=== PATIENT | male | born 1955 | race Caucasian/White ===

== ENCOUNTER 2020-11-28 16:32 | Inpatient (IN) ==
[2020-11-28] MEDS ORDERED: Dextrose Gel 15 GM/37.5 ML TUBE PO PRN ×2 (19:47)
[2020-11-28] MEDS ORDERED: D5% in Water 1,000 ML IVC PRN (19:47)
[2020-11-28] MEDS ORDERED: *HR* Dextrose 50 % in Water (Syg) 50 ML SYRINGE IVP PRN (19:47)
[2020-11-28] MEDS ORDERED: Insulin DETEMIR 100 UNIT/ML per UNIT SUBQ ONE (21:00)
[2020-11-28] MEDS: Lactulose Oral Soln 20 GM/30 ML UDC PO SCH (21:54)
[2020-11-29 04:50] LABS: Basophils % 0.6 %; Eosinophils # 0.1 K/mcL (0.0-0.6); Eosinophils % 2.4 %; Hematocrit 30.9 % (37.5-50.1); Hemoglobin 10.1 g/dL (12.9-16.9); Immature Granulocytes % 0.4 % (0-4); Lymphocytes # 0.7 K/mcL (0.6-4.6); Lymphocytes % 14.9 %; Mean Corpuscular HGB Conc 32.7 g/dL (31.6-35.5); Mean Corpuscular Hemoglobin 31.3 pg (28.0-33.3); Mean Corpuscular Volume 95.7 fL (83.0-100.0); Monocytes # 0.8 K/mcL (0.0-1.3); Monocytes % 16.9 %; Neutrophils # 3.2 K/mcL (1.6-8.9); Platelet Count 120 K/mcL (140-400); Red Blood Count 3.23 M/mcL (4.19-5.50); Red Cell Distribution Width 13.3 % (11.5-14.5); Segmented Neutrophils % 64.8 %
[2020-11-29 05:01] LABS: Platelet Estimate Slight Decrease (Normal)
[2020-11-29 05:03] LABS: BUN/Creatinine Ratio 24 (6-26); Blood Urea Nitrogen 31 mg/dL (8-23); Calcium 7.7 mg/dL (8.6-10.3); Carbon Dioxide 27 mEq/L (23-29); Chloride 102 mEq/L (98-107); Glucose 229 mg/dL (70-105); Osmolality,Calculated 290 (280-300); Sodium 133 mEq/L (136-145); eGFR For African Americans > 60 (> 60); eGFR For Non-African Americans 57 (> 60)
[2020-11-29] MEDS: *HR* Enoxaparin 40 MG/0.4 ML SYRINGE SQ SCH (06:07)
[2020-11-29] MEDS: Spironolactone 25 MG TABLET PO SCH (10:10)
[2020-11-29] MEDS: Furosemide 40 MG TABLET PO SCH (10:10)
[2020-11-29] MEDS: Aspirin 81 MG TAB.CHEW PO SCH (10:11)
[2020-11-29] MEDS: Insulin LISPRO 300 UNITS/3 ML VIAL SUBQ SCH ×3 (10:11→16:56)
[2020-11-29] MEDS: Venlafaxine XR (24 HR) 75 MG CAP.ER.24H PO SCH (10:11)
[2020-11-29] MEDS: Insulin DETEMIR 100 UNIT/ML X5UNITS SUBQ SCH ×2 (10:12→19:57)
[2020-11-29] MEDS: Lactulose Oral Soln 20 GM/30 ML UDC PO SCH ×2 (10:39→19:59)
[2020-11-30] MEDS: *HR* Enoxaparin 40 MG/0.4 ML SYRINGE SQ SCH (05:15)
[2020-11-30] MEDS: Insulin LISPRO 300 UNITS/3 ML VIAL SUBQ SCH ×3 (07:50→18:03)
[2020-11-30] MEDS: Aspirin 81 MG TAB.CHEW PO SCH (07:51)
[2020-11-30] MEDS: Venlafaxine XR (24 HR) 75 MG CAP.ER.24H PO SCH (07:52)
[2020-11-30] MEDS: Lactulose Oral Soln 20 GM/30 ML UDC PO SCH ×2 (07:52→20:25)
[2020-11-30] MEDS: Furosemide 40 MG TABLET PO SCH (07:52)
[2020-11-30] MEDS: Spironolactone 25 MG TABLET PO SCH (07:52)
[2020-11-30] MEDS: Insulin DETEMIR 100 UNIT/ML X5UNITS SUBQ SCH ×2 (07:54→20:25)
[2020-12-01] MEDS: *HR* Enoxaparin 40 MG/0.4 ML SYRINGE SQ SCH (05:13)
[2020-12-01] MEDS: Aspirin 81 MG TAB.CHEW PO SCH (08:05)
[2020-12-01] MEDS: Furosemide 40 MG TABLET PO SCH (08:05)
[2020-12-01] MEDS: Venlafaxine XR (24 HR) 75 MG CAP.ER.24H PO SCH (08:05)
[2020-12-01] MEDS: Spironolactone 25 MG TABLET PO SCH (08:06)
[2020-12-01] MEDS: Insulin LISPRO 300 UNITS/3 ML VIAL SUBQ SCH ×3 (08:06→17:02)
[2020-12-01] MEDS: Insulin DETEMIR 100 UNIT/ML X5UNITS SUBQ SCH ×2 (08:09→21:53)
[2020-12-01] MEDS: Lactulose Oral Soln 20 GM/30 ML UDC PO SCH ×2 (08:09→21:53)
[2020-12-02] MEDS: *HR* Enoxaparin 40 MG/0.4 ML SYRINGE SQ SCH (04:50)
[2020-12-02 06:00] LABS: Hematocrit 32.1 % (37.5-50.1); Hemoglobin 10.4 g/dL (12.9-16.9); Mean Corpuscular HGB Conc 32.4 g/dL (31.6-35.5); Mean Corpuscular Volume 95.5 fL (83.0-100.0); Mean Platelet Volume 10.6 fL (9.4-12.4); Platelet Count 126 K/mcL (140-400); Red Blood Count 3.36 M/mcL (4.19-5.50); Red Cell Distribution Width 13.5 % (11.5-14.5); White Blood Count 5.9 K/mcL (4.3-11.1)
[2020-12-02 06:28] LABS: Alanine Aminotransferase 15 Units/L (7-52); Albumin 1.9 g/dL (3.5-5.7); Albumin/Globulin Ratio 0.4 (1.1-2.2); Alkaline Phosphatase 185 Units/L (34-104); Aspartate Amino Transferase 32 Units/L (13-39); BUN/Creatinine Ratio 24 (6-26); Bilirubin,Total 1.1 mg/dL (0.3-1.0); Blood Urea Nitrogen 26 mg/dL (8-23); Calcium 7.9 mg/dL (8.6-10.3); Carbon Dioxide 28 mEq/L (23-29); Chloride 104 mEq/L (98-107); Globulin 4.6 g/dL (2.4-3.5); Glucose 70 mg/dL (70-105); Magnesium 1.8 mg/dL (1.6-2.6); Osmolality,Calculated 283 (280-300); Potassium 3.7 mEq/L (3.5-5.1); Sodium 135 mEq/L (136-145); Total Protein 6.5 g/dL (6.4-8.9); eGFR For African Americans > 60 (> 60); eGFR For Non-African Americans > 60 (> 60)
[2020-12-02] MEDS: Insulin DETEMIR 100 UNIT/ML X5UNITS SUBQ SCH ×2 (08:00→20:54)
[2020-12-02] MEDS: Insulin LISPRO 300 UNITS/3 ML VIAL SUBQ SCH ×3 (08:00→16:46)
[2020-12-02] MEDS: Aspirin 81 MG TAB.CHEW PO SCH (08:01)
[2020-12-02] MEDS: Furosemide 40 MG TABLET PO SCH (08:02)
[2020-12-02] MEDS: Spironolactone 25 MG TABLET PO SCH (08:02)
[2020-12-02] MEDS: Venlafaxine XR (24 HR) 75 MG CAP.ER.24H PO SCH (08:02)
[2020-12-02] MEDS: Lactulose Oral Soln 20 GM/30 ML UDC PO SCH ×2 (09:00→20:52)
[2020-12-03] MEDS: *HR* Enoxaparin 40 MG/0.4 ML SYRINGE SQ SCH (06:53)
[2020-12-03] MEDS: Spironolactone 25 MG TABLET PO SCH (08:21)
[2020-12-03] MEDS: Insulin LISPRO 300 UNITS/3 ML VIAL SUBQ SCH ×3 (08:21→16:48)
[2020-12-03] MEDS: Aspirin 81 MG TAB.CHEW PO SCH (08:21)
[2020-12-03] MEDS: Furosemide 40 MG TABLET PO SCH (08:22)
[2020-12-03] MEDS: Venlafaxine XR (24 HR) 75 MG CAP.ER.24H PO SCH (08:22)
[2020-12-03] MEDS: Lactulose Oral Soln 20 GM/30 ML UDC PO SCH ×2 (08:24→21:41)
[2020-12-03] MEDS: Insulin DETEMIR 100 UNIT/ML X5UNITS SUBQ SCH ×2 (12:16→21:41)
[2020-12-03] MEDS: Nystatin Cream 15 GM TUBE TP SCH (22:23)
[2020-12-04] MEDS: *HR* Enoxaparin 40 MG/0.4 ML SYRINGE SQ SCH (06:01)
[2020-12-04] MEDS: Insulin DETEMIR 100 UNIT/ML X5UNITS SUBQ SCH ×2 (08:43→21:55)
[2020-12-04] MEDS: Insulin LISPRO 300 UNITS/3 ML VIAL SUBQ SCH ×3 (08:43→17:10)
[2020-12-04] MEDS: Lactulose Oral Soln 20 GM/30 ML UDC PO SCH ×2 (08:44→21:52)
[2020-12-04] MEDS: Furosemide 40 MG TABLET PO SCH (08:44)
[2020-12-04] MEDS: Spironolactone 25 MG TABLET PO SCH (08:44)
[2020-12-04] MEDS: Nystatin Cream 15 GM TUBE TP SCH ×3 (08:44→21:53)
[2020-12-04] MEDS: Venlafaxine XR (24 HR) 75 MG CAP.ER.24H PO SCH (08:44)
[2020-12-04] MEDS: Aspirin 81 MG TAB.CHEW PO SCH (08:44)
[2020-12-05] MEDS: *HR* Enoxaparin 40 MG/0.4 ML SYRINGE SQ SCH (06:45)
[2020-12-05] MEDS: Insulin DETEMIR 100 UNIT/ML X5UNITS SUBQ SCH ×2 (07:51→20:49)
[2020-12-05] MEDS: Venlafaxine XR (24 HR) 75 MG CAP.ER.24H PO SCH (07:51)
[2020-12-05] MEDS: Insulin LISPRO 300 UNITS/3 ML VIAL SUBQ SCH ×3 (07:51→16:14)
[2020-12-05] MEDS: Aspirin 81 MG TAB.CHEW PO SCH (07:51)
[2020-12-05] MEDS: Furosemide 40 MG TABLET PO SCH (07:51)
[2020-12-05] MEDS: Nystatin Cream 15 GM TUBE TP SCH ×3 (07:51→20:50)
[2020-12-05] MEDS: Spironolactone 25 MG TABLET PO SCH (07:51)
[2020-12-05] MEDS: Lactulose Oral Soln 20 GM/30 ML UDC PO SCH ×2 (07:58→20:49)
[2020-12-06 04:44] LABS: Hematocrit 34.9 % (37.5-50.1); Hemoglobin 11.3 g/dL (12.9-16.9); Mean Corpuscular HGB Conc 32.4 g/dL (31.6-35.5); Mean Corpuscular Hemoglobin 30.9 pg (28.0-33.3); Mean Corpuscular Volume 95.4 fL (83.0-100.0); Mean Platelet Volume 10.5 fL (9.4-12.4); Platelet Count 146 K/mcL (140-400); Red Blood Count 3.66 M/mcL (4.19-5.50); Red Cell Distribution Width 13.6 % (11.5-14.5); White Blood Count 7.2 K/mcL (4.3-11.1)
[2020-12-06] MEDS: *HR* Enoxaparin 40 MG/0.4 ML SYRINGE SQ SCH (04:50)
[2020-12-06] MEDS: Insulin LISPRO 300 UNITS/3 ML VIAL SUBQ SCH ×3 (08:10→17:28)
[2020-12-06] MEDS: Aspirin 81 MG TAB.CHEW PO SCH (08:11)
[2020-12-06] MEDS: Lactulose Oral Soln 20 GM/30 ML UDC PO SCH ×2 (08:11→20:32)
[2020-12-06] MEDS: Venlafaxine XR (24 HR) 75 MG CAP.ER.24H PO SCH (08:11)
[2020-12-06] MEDS: Furosemide 40 MG TABLET PO SCH (08:11)
[2020-12-06] MEDS: Spironolactone 25 MG TABLET PO SCH (08:11)
[2020-12-06] MEDS: Nystatin Cream 15 GM TUBE TP SCH ×3 (08:13→20:32)
[2020-12-06] MEDS: Insulin DETEMIR 100 UNIT/ML X5UNITS SUBQ SCH ×2 (08:19→20:32)
[2020-12-06 08:20] LABS: Alanine Aminotransferase 11 Units/L (7-52); Albumin 2.3 g/dL (3.5-5.7); Albumin/Globulin Ratio 0.6 (1.1-2.2); Alkaline Phosphatase 161 Units/L (34-104); Aspartate Amino Transferase 28 Units/L (13-39); BUN/Creatinine Ratio 15 (6-26); Blood Urea Nitrogen 19 mg/dL (8-23); Carbon Dioxide 29 mEq/L (23-29); Chloride 105 mEq/L (98-107); Globulin 4.1 g/dL (2.4-3.5); Glucose 128 mg/dL (70-105); Magnesium 1.9 mg/dL (1.6-2.6); Osmolality,Calculated 288 (280-300); Potassium 4.3 mEq/L (3.5-5.1); Sodium 137 mEq/L (136-145); Total Protein 6.4 g/dL (6.4-8.9); eGFR For African Americans > 60 (> 60); eGFR For Non-African Americans 55 (> 60)
[2020-12-07] MEDS: *HR* Enoxaparin 40 MG/0.4 ML SYRINGE SQ SCH (05:06)
[2020-12-07] MEDS: Insulin LISPRO 300 UNITS/3 ML VIAL SUBQ SCH ×3 (07:46→16:04)
[2020-12-07] MEDS: Furosemide 40 MG TABLET PO SCH (07:54)
[2020-12-07] MEDS: Nystatin Cream 15 GM TUBE TP SCH ×3 (07:55→20:18)
[2020-12-07] MEDS: Spironolactone 25 MG TABLET PO SCH (07:55)
[2020-12-07] MEDS: Venlafaxine XR (24 HR) 75 MG CAP.ER.24H PO SCH (07:55)
[2020-12-07] MEDS: Aspirin 81 MG TAB.CHEW PO SCH (07:55)
[2020-12-07] MEDS: Lactulose Oral Soln 20 GM/30 ML UDC PO SCH ×2 (07:55→19:13)
[2020-12-07] MEDS: Insulin DETEMIR 100 UNIT/ML X5UNITS SUBQ SCH ×2 (08:00→20:18)
[2020-12-07 19:17] VITALS: O2SAT 98
[2020-12-08] MEDS: *HR* Enoxaparin 40 MG/0.4 ML SYRINGE SQ SCH (04:28)
[2020-12-08 07:40] VITALS: BP 114/67; PULSE 88; RESP 16; TEMP 97.7
[2020-12-08] MEDS: Insulin LISPRO 300 UNITS/3 ML VIAL SUBQ SCH ×2 (07:59→11:47)
[2020-12-08] MEDS: Spironolactone 25 MG TABLET PO SCH (08:00)
[2020-12-08] MEDS: Insulin DETEMIR 100 UNIT/ML X5UNITS SUBQ SCH (08:00)
[2020-12-08] MEDS: Venlafaxine XR (24 HR) 75 MG CAP.ER.24H PO SCH (08:01)
[2020-12-08] MEDS: Nystatin Cream 15 GM TUBE TP SCH (08:01)
[2020-12-08] MEDS: Furosemide 40 MG TABLET PO SCH (08:01)
[2020-12-08] MEDS: Aspirin 81 MG TAB.CHEW PO SCH (08:01)
[2020-12-08] MEDS: Lactulose Oral Soln 20 GM/30 ML UDC PO SCH (08:01)
[2020-12-08] MEDS ORDERED: Insulin DETEMIR 100 UNIT/ML X5UNITS SUBQ SCH (21:00)
== END 2020-12-08 14:40 | disposition home health service (06) | DRG 945 ==
LOC: INPGRE 17:24
PROVIDERS: ADMIT Family Medicine; ATTEND Family Medicine